=== PATIENT | female | born 1995 | race Caucasian/White ===

== ENCOUNTER 2016-08-07 14:15 | Observation (INO) | payer SELFPAY ==
[~2016-08-07] VITALS: Ht 160 cm; Wt 80.3 kg
[2016-08-07 15:13] VITALS: BP 140/110
--- NOTE | 2016-08-07 15:29 | NUR ---
OB RN NOTIFIED TO CHECK HEART TONE AT EXT [id number]
--- NOTE | 2016-08-07 15:37 | NUR ---
Patient ambulated to bed 8. CLAIM REP evaluating patient at bedside.
[2016-08-07] MEDS ORDERED: hydrALAZINE 20 MG/ML VIAL IVP ONE (15:45)
--- NOTE | 2016-08-07 15:53 | NUR ---
Dr. Hood at bedside and wants patient to go to L&D
--- NOTE | 2016-08-07 16:03 | NUR ---
Pt taken to L&D in a w/c accompanied by EMT David and ARABELLA Hedrick.
[2016-08-07] MEDS ORDERED: LABETALOL 200 MG TAB PO SCH (21:00)
[2016-08-07] MEDS ORDERED: LABETALOL 200 MG TAB ONE (22:18)
--- NOTE | 2016-08-08 06:57 | NUR ---
PATIENT HAS BEEN SCREENED AND CATEGORIZED LOW NUTRITION RISK. PATIENT WILL BE SEEN WITHIN 7 DAYS OF ADMISSION. 08/14/16 DANICA SOLIS MS, RDN
[2016-08-08 07:03] LABS: BASOPHILS # (AUTO) 0.2 K/uL (0.00-0.22); BASOPHILS % (AUTO) 1.3 % (0.0-2.0); EOSINOPHILS # (AUTO) 0.1 K/uL (0-0.4); EOSINOPHILS % (AUTO) 1.2 % (0.0-4.0); HEMATOCRIT 37.4 % (36-48); HEMOGLOBIN 12.5 g/dL (12.0-16.0); LYMPHOCYTES # (AUTO) 4.1 K/uL (2.5-16.5); LYMPHOCYTES % (AUTO) 33.9 % (20.5-51.1); MEAN CORPUSCULAR HEMOGLOBIN 30 pg (27-31); MEAN CORPUSCULAR HGB CONC 34 g/dL (33-37); MEAN CORPUSCULAR VOLUME 89 fL (80-94); MONOCYTES # (AUTO) 0.7 K/uL (0.8-1.0); NEUTROPHILS # (AUTO) 7.1 K/uL (1.8-7.7); NEUTROPHILS % (AUTO) 57.6 % (42.2-75.2); PLATELET COUNT (AUTO) 192 K/uL (140-450); RED BLOOD CELL COUNT(AUTO) 4.19 MIL/uL (4.20-5.40); RED CELL DISTRIBUTION WIDTH 13.4 % (11.6-13.7); WHITE BLOOD COUNT (AUTO) 12.2 K/uL (4.5-11.0)
[2016-08-08 07:44] LABS: ALBUMIN 2.4 g/dL (3.4-5.0); BILIRUBIN,DIRECT 0.1 mg/dL (0.0-0.3); TOTAL BILIRUBIN 0.4 mg/dL (0.0-1.0); TOTAL PROTEIN, SERUM 6.1 g/dL (6.4-8.2)
[2016-08-08 07:54] LABS: INR 0.9 (0.8-1.2); PARTIAL THROMBOPLASTIN TIME 26.4 secs (22-35.6); PROTHROMBIN TIME 9.2 secs (10.8-13.4)
[2016-08-08] MEDS ORDERED: LABETALOL 200 MG TAB ONE (09:55)
== END 2016-08-08 15:28 | disposition home or self-care (01) ==
LOC: MED 14:15 → EDSTATUS 16:00 → PREOBSVTOIN 16:10 → MFCC 17:09
PROVIDERS: ADMIT Obstetrics & Gynecology; ATTEND Obstetrics & Gynecology
DX: O14.93 Unspecified pre-eclampsia, third trimester (principal); Z3A.37 37 weeks gestation of pregnancy
CPT/HCPCS: 36415; 76805; 80076; 81000; 85025; 85379; 85384; 85610; 85730; 93005; 99283; G0378; Q0092; 99285

== ENCOUNTER 2016-08-14 14:38 | Inpatient (IN) | payer SELFPAY ==
[~2016-08-14] VITALS: Ht 160 cm; Wt 79.8 kg
[2016-08-14] MEDS ORDERED: MISOPROSTOL 25 MCG TAB ONE (21:40)
[2016-08-14] MEDS ORDERED: OXYTOCIN 20 UNITS/LR PREMIX 1,000 ML IV SCH ×2 (21:50→22:54)
[2016-08-14] MEDS ORDERED: AMPICILLIN 2,000 MG in NACL 0.9% 100 ML IV SCH (21:50)
[2016-08-14] MEDS ORDERED: METHYLERGONOVINE 0.2 MG/ML AMP IM PRN (21:50)
[2016-08-14] MEDS ORDERED: CARBOPROST 250 MCG/ML AMP IM SCH (21:50)
[2016-08-14] MEDS ORDERED: NALBUPHINE 10 MG/ML AMP IVP PRN ×2 (21:50→22:55)
[2016-08-14 22:00] VITALS: BP 132/87
[2016-08-14] MEDS ORDERED: AMPICILLIN 2,000 MG VIAL ONE (22:20)
[2016-08-14 22:36] LABS: BASOPHILS # (AUTO) 0.1 K/uL (0.00-0.22); BASOPHILS % (AUTO) 1.1 % (0.0-2.0); EOSINOPHILS # (AUTO) 0.2 K/uL (0-0.4); EOSINOPHILS % (AUTO) 1.6 % (0.0-4.0); HEMATOCRIT 40.4 % (36-48); HEMOGLOBIN 13.1 g/dL (12.0-16.0); LYMPHOCYTES % (AUTO) 33.1 % (20.5-51.1); MEAN CORPUSCULAR HEMOGLOBIN 29 pg (27-31); MEAN CORPUSCULAR HGB CONC 33 g/dL (33-37); MEAN CORPUSCULAR VOLUME 89 fL (80-94); MONOCYTES # (AUTO) 0.8 K/uL (0.8-1.0); MONOCYTES % (AUTO) 6.7 % (1.7-9.3); NEUTROPHILS # (AUTO) 6.9 K/uL (1.8-7.7); NEUTROPHILS % (AUTO) 57.5 % (42.2-75.2); PLATELET COUNT (AUTO) 203 K/uL (140-450); RED BLOOD CELL COUNT(AUTO) 4.57 MIL/uL (4.20-5.40); RED CELL DISTRIBUTION WIDTH 13.4 % (11.6-13.7)
[2016-08-14 22:43] LABS: APPEARANCE,URINE SL CLOUDY (CLEAR); BILIRUBIN,URINE NEGATIVE (NEGATIVE); BLOOD, URINE NEGATIVE (NEGATIVE); COLOR,URINE YELLOW (YELLOW); LEUKOCYTE ESTERASE ,URINE 3+ (NEGATIVE); NITRITE, URINE NEGATIVE (NEGATIVE); PROTEIN,URINE NEGATIVE (NEGATIVE); UGLUCOSE NEGATIVE (NEGATIVE); UROBILINOGEN,URINE 0.2 EU/dL (0.2 - 1)
[2016-08-14 22:49] LABS: BACTERIA,URINE 2+ /HPF (None Seen); RBC,URINE 0-5 /HPF (0-5); WBC,URINE 60-80 /HPF (0-5)
[2016-08-14] MEDS: LACTATED RINGERS 1,000 ML IV SCH (22:49)
[2016-08-14 22:54] LABS: ALBUMIN 2.6 g/dL (3.4-5.0); ANION GAP 16.2 (8-16); CALCIUM 8.9 mg/dL (8.5-10.1); CARBON DIOXIDE 21.7 mmol/L (21-32); CREATININE 0.7 mg/dL (0.6-1.3); POTASSIUM 3.9 mmol/L (3.5-5.1); TOTAL BILIRUBIN 0.2 mg/dL (0.0-1.0); TOTAL PROTEIN, SERUM 6.7 g/dL (6.4-8.2)
[2016-08-14] MEDS ORDERED: MISOPROSTOL 25 MCG TAB VG ONE (22:55)
[2016-08-15] MEDS ORDERED: LABETALOL 200 MG TAB ONE ×2 (00:02→12:17)
[2016-08-15 00:43] LABS: INR 0.9 (0.8-1.2); PROTHROMBIN TIME 9.2 secs (10.8-13.4)
[2016-08-15] MEDS ORDERED: MISOPROSTOL 25 MCG TAB VG SCH (01:00)
[2016-08-15] MEDS ORDERED: AMPICILLIN 1,000 MG VIAL ONE ×2 (03:23→08:46)
[2016-08-15] MEDS: AMPICILLIN 1,000 MG in NACL 0.9% 50 ML IV SCH ×2 (03:38→08:52)
[2016-08-15] MEDS ORDERED: OXYTOCIN 20 UNITS/LR PREMIX 1,000 ML IV ONE (04:03)
[2016-08-15] MEDS: LACTATED RINGERS 1,000 ML IV SCH ×2 (06:04→06:56)
[2016-08-15] MEDS ORDERED: BUPIVACAINE 0.125%/NS PREMIX 250 ML ONE (06:06)
--- NOTE | 2016-08-15 06:51 | NUR ---
PATIENT HAS BEEN SCREENED AND CATEGORIZED LOW NUTRITION RISK. PATIENT WILL BE SEEN WITHIN 7 DAYS OF ADMISSION. 08/22/15 DANICA SOLIS MS, RDN
[2016-08-15] MEDS: LABETALOL 200 MG TAB PO SCH ×2 (12:19)
[2016-08-15] MEDS ORDERED: MORPHINE SULFATE 10 MG/ML SYR ONE (12:52)
[2016-08-15] MEDS ORDERED: LIDOCAINE MPF 2% 100 MG/5 ML VIAL INJ ONE (13:09)
[2016-08-15] MEDS ORDERED: LABETALOL 100 MG/20 ML VIAL ONE (13:10)
[2016-08-15] MEDS ORDERED: METHYLERGONOVINE 0.2 MG/ML AMP ONE (13:11)
[2016-08-15] MEDS ORDERED: OXYTOCIN 10 UNITS/ML VIAL ONE (13:15)
[2016-08-15] MEDS ORDERED: NALOXONE 0.4 MG/ML VIAL ONE ×3 (13:17→13:34)
[2016-08-15] MEDS ORDERED: OXYTOCIN 20 UNITS/LR PREMIX 1,000 ML IV SCH (16:43)
[2016-08-15] MEDS ORDERED: WITCH HAZEL 40 PAD PACKAGE TP PRN (16:45)
[2016-08-15] MEDS ORDERED: DOCUSATE SODIUM 100 MG GELCAP PO PRN (16:45)
[2016-08-15] MEDS ORDERED: oxyCODONE/APAP 5/325 MG 1 TAB TAB PO PRN (16:45)
[2016-08-15] MEDS ORDERED: BENZOCAINE/MENTHOL 20%-0.5% 60 GM CAN TP PRN (16:45)
[2016-08-15] MEDS ORDERED: MEASLES, MUMPS, AND RUBELLA 1 VIAL SQVAC PRN (16:45)
[2016-08-15] MEDS ORDERED: ACETAMINOPHEN 325 MG TAB ONE (20:02)
[2016-08-15] MEDS: ACETAMINOPHEN 325 MG TAB PO PRN (20:36)
[2016-08-15] MEDS ORDERED: LABETALOL 200 MG TAB PO SCH (21:00)
[2016-08-16] MEDS ORDERED: NALOXONE 0.4 MG/ML VIAL IVP ONE (00:01)
[2016-08-16] MEDS ORDERED: LABETALOL 200 MG TAB ONE (00:08)
[2016-08-16 06:42] LABS: BASOPHILS # (AUTO) 0.2 K/uL (0.00-0.22); BASOPHILS % (AUTO) 1.5 % (0.0-2.0); EOSINOPHILS # (AUTO) 0.2 K/uL (0-0.4); EOSINOPHILS % (AUTO) 1.6 % (0.0-4.0); HEMATOCRIT 34.5 % (36-48); HEMOGLOBIN 11.2 g/dL (12.0-16.0); LYMPHOCYTES % (AUTO) 33.8 % (20.5-51.1); MEAN CORPUSCULAR HEMOGLOBIN 29 pg (27-31); MEAN CORPUSCULAR HGB CONC 33 g/dL (33-37); MEAN CORPUSCULAR VOLUME 89 fL (80-94); MONOCYTES # (AUTO) 0.6 K/uL (0.8-1.0); MONOCYTES % (AUTO) 5.1 % (1.7-9.3); NEUTROPHILS # (AUTO) 6.9 K/uL (1.8-7.7); PLATELET COUNT (AUTO) 156 K/uL (140-450); RED BLOOD CELL COUNT(AUTO) 3.86 MIL/uL (4.20-5.40); RED CELL DISTRIBUTION WIDTH 13.4 % (11.6-13.7); WHITE BLOOD COUNT (AUTO) 11.9 K/uL (4.5-11.0)
[2016-08-16] MEDS ORDERED: ACETAMINOPHEN 325 MG TAB ONE (08:24)
[2016-08-16] MEDS: ACETAMINOPHEN 325 MG TAB PO PRN (08:30)
[2016-08-16] MEDS ORDERED: LABETALOL 100 MG TAB PO SCH (12:00)
[2016-08-16] MEDS: LABETALOL 100 MG TAB PO SCH (15:05)
[2016-08-17] MEDS: LABETALOL 100 MG TAB PO SCH ×3 (03:06→10:56)
[2016-08-17] MEDS ORDERED: FERR325E14 PO (14:25)
[2016-08-17] MEDS ORDERED: ACET-9800 PO (14:27)
[2016-08-17] MEDS ORDERED: TRA200 PO (14:29)
== END 2016-08-17 15:25 | disposition home or self-care (01) | DRG 774 ==
LOC: OBSVTOIN 14:38 → MLD 14:38 → MFCC 08-16 10:35
PROVIDERS: ADMIT Obstetrics & Gynecology; ATTEND Obstetrics & Gynecology
PROC: 10D07Z6 Extraction of Products of Conception, Vacuum, Via Natural or Artificial Opening (ICD-10-PCS; principal; 2016-08-15)
PROC: 10907ZC Drainage of Amniotic Fluid, Therapeutic from Products of Conception, Via Natural or Artificial Opening (ICD-10-PCS; 2016-08-15)
PROC: 0W8NXZZ Division of Female Perineum, External Approach (ICD-10-PCS; 2016-08-15)
PROC: 00HU33Z Insertion of Infusion Device into Spinal Canal, Percutaneous Approach (ICD-10-PCS; 2016-08-15)
PROC: 3E0R3CZ (ICD-10-PCS; 2016-08-15)
DX: O13.4 Gestational [pregnancy-induced] hypertension without significant proteinuria, complicating childbirth (principal); O15.1 Eclampsia complicating labor; O41.03X0 Oligohydramnios, third trimester, not applicable or unspecified; O14.94 Unspecified pre-eclampsia, complicating childbirth; O99.824 Streptococcus B carrier state complicating childbirth; Z3A.38 38 weeks gestation of pregnancy; Z37.0 Single live birth; Z83.3 Family history of diabetes mellitus; Z82.49 Family history of ischemic heart disease and other diseases of the circulatory system; Z28.21 Immunization not carried out because of patient refusal
CPT/HCPCS: 36415; 51702; 59025; 59200; 59409; 76815; 80053; 81001; 83735; 85025; 85379; 85384; 85610; 85730; 86592; 86886; 86900; 86901; 87086; J0290; J2001; J2210; J2270; J2310; J2590; J3490; J7120; Q0092

== ENCOUNTER 2018-05-20 16:26 | Inpatient (IN) | payer OTHER ==
[~2018-05-20] VITALS: Ht 160 cm; Wt 79.8 kg
[~2018-05-20 16:26] MED LIST: ACET-9800 PO; FERR325E14 PO; TRA200 PO
[2018-05-20] MEDS ORDERED: PREN-380 PO (17:39)
[2018-05-20] MEDS ORDERED: PROMETHAZINE 25 MG/ML VIAL IVP PRN (17:40)
[2018-05-20] MEDS ORDERED: CARBOPROST 250 MCG/ML AMP IM PRN (17:40)
[2018-05-20] MEDS ORDERED: NALBUPHINE 10 MG/ML AMP IVP PRN ×2 (17:40→20:50)
[2018-05-20] MEDS ORDERED: MISOPROSTOL 25 MCG TAB VG PRN (17:40)
[2018-05-20] MEDS ORDERED: METHYLERGONOVINE 0.2 MG/ML AMP IM PRN (17:40)
[2018-05-20] MEDS ORDERED: OXYTOCIN 10 UNITS/ML VIAL IM SCH (17:40)
[2018-05-20] MEDS ORDERED: AMPICILLIN 2,000 MG VIAL ONE (18:03)
[2018-05-20 18:15] LABS: BASOPHILS % (AUTO) 0.4 % (0.0-2.0); EOSINOPHILS % (AUTO) 0.2 % (0.0-4.0); HEMATOCRIT 38.3 % (36-48); HEMOGLOBIN 12.8 g/dL (12.0-16.0); LYMPHOCYTES # (AUTO) 2.8 K/uL (2.5-16.5); LYMPHOCYTES % (AUTO) 29.1 % (20.5-51.1); MEAN CORPUSCULAR HEMOGLOBIN 29 pg (27-31); MEAN CORPUSCULAR HGB CONC 33 g/dL (33-37); MEAN CORPUSCULAR VOLUME 87.3 fL (80-94); MONOCYTES # (AUTO) 0.4 K/uL (0.8-1.0); MONOCYTES % (AUTO) 4.6 % (1.7-9.3); NEUTROPHILS # (AUTO) 6.3 K/uL (1.8-7.7); NEUTROPHILS % (AUTO) 65.7 % (42.2-75.2); PLATELET COUNT (AUTO) 243 K/uL (140-450); RED BLOOD CELL COUNT(AUTO) 4.39 MIL/uL (4.20-5.40); RED CELL DISTRIBUTION WIDTH 14.1 % (11.6-13.7); WHITE BLOOD COUNT (AUTO) 9.7 K/uL (4.8-10.8)
[2018-05-20 18:15] LABS: APPEARANCE,URINE CLEAR (CLEAR); BILIRUBIN,URINE NEGATIVE (NEGATIVE); BLOOD, URINE NEGATIVE (NEGATIVE); COLOR,URINE YELLOW (YELLOW); LEUKOCYTE ESTERASE ,URINE 2+ (NEGATIVE); NITRITE, URINE NEGATIVE (NEGATIVE); UGLUCOSE NEGATIVE (NEGATIVE)
[2018-05-20] MEDS: LACTATED RINGERS 1,000 ML IV SCH (18:31)
[2018-05-20 18:33] LABS: ALBUMIN 2.5 g/dL (3.4-5.0); CARBON DIOXIDE 21.7 mmol/L (21-32); CREATININE 0.6 mg/dL (0.6-1.3); POTASSIUM 3.7 mmol/L (3.5-5.1); TOTAL BILIRUBIN 0.2 mg/dL (0.0-1.0)
[2018-05-20 18:34] LABS: RBC,URINE 0-5 /HPF (0-5)
[2018-05-20] MEDS ORDERED: AMPICILLIN 2,000 MG in NACL 0.9% MINI-BAG PLUS 100 ML IV SCH (19:00)
[2018-05-20] MEDS: AMPICILLIN 1,000 MG in NACL 0.9% MINI-BAG PLUS 50 ML IV SCH (20:44)
[2018-05-20] MEDS ORDERED: OXYTOCIN 20 UNITS in LACTATED RINGERS 1,000 ML IV SCH (20:49)
[2018-05-20] MEDS ORDERED: MISOPROSTOL 25 MCG TAB VG ONE (20:50)
[2018-05-20] MEDS ORDERED: MISOPROSTOL 25 MCG TAB ONE (21:29)
[2018-05-20] MEDS: AMPICILLIN 1,000 MG VIAL ONE (22:42)
[2018-05-21] MEDS ORDERED: AMPICILLIN 1,000 MG VIAL ONE ×2 (00:30→05:46)
[2018-05-21] MEDS ORDERED: BUPIVACAINE 0.125%/NS PREMIX 250 ML ONE (01:03)
[2018-05-21] MEDS: AMPICILLIN 1,000 MG VIAL ONE (03:01)
[2018-05-21] MEDS: LACTATED RINGERS 1,000 ML IV SCH (03:06)
[2018-05-21] MEDS: AMPICILLIN 1,000 MG in NACL 0.9% MINI-BAG PLUS 50 ML IV SCH (07:01)
[2018-05-21] MEDS ORDERED: OXYTOCIN 10 UNITS/ML VIAL ONE (10:26)
[2018-05-21] MEDS ORDERED: LIDOCAINE 1% 500 MG/50 ML VIAL ONE (10:26)
[2018-05-21] MEDS ORDERED: OXYTOCIN 20 UNITS in LACTATED RINGERS 1,000 ML IV SCH (15:20)
[2018-05-21] MEDS ORDERED: MEASLES, MUMPS, AND RUBELLA 1 VIAL SQVAC PRN (15:20)
[2018-05-21] MEDS ORDERED: DOCUSATE SODIUM 100 MG GELCAP PO PRN (15:20)
[2018-05-21] MEDS ORDERED: BENZOCAINE/MENTHOL 20%-0.5% 60 GM CAN TP PRN (15:20)
[2018-05-21] MEDS ORDERED: BISACODYL 5 MG TABEC PO PRN (15:20)
[2018-05-21] MEDS: ACETAMINOPHEN 325 MG TAB PO PRN (20:16)
[2018-05-22] MEDS: IBUPROFEN 600 MG TAB PO PRN ×2 (02:14→13:03)
--- NOTE | 2018-05-22 06:26 | NUR ---
PATIENT HAS BEEN SCREENED AND CATEGORIZED LOW NUTRITION RISK. PATIENT WILL BE SEEN WITHIN 7 DAYS OF ADMISSION. 05/27/18 DANICA SOLIS MS, RDN
[2018-05-22 08:30] LABS: BASOPHILS # (AUTO) 0.1 K/uL (0.00-0.22); BASOPHILS % (AUTO) 1.2 % (0.0-2.0); EOSINOPHILS # (AUTO) 0.1 K/uL (0-0.4); EOSINOPHILS % (AUTO) 0.7 % (0.0-4.0); HEMATOCRIT 33.8 % (36-48); HEMOGLOBIN 11.1 g/dL (12.0-16.0); LYMPHOCYTES # (AUTO) 3.8 K/uL (2.5-16.5); LYMPHOCYTES % (AUTO) 34.5 % (20.5-51.1); MEAN CORPUSCULAR HEMOGLOBIN 29 pg (27-31); MEAN CORPUSCULAR HGB CONC 33 g/dL (33-37); MONOCYTES # (AUTO) 0.6 K/uL (0.8-1.0); MONOCYTES % (AUTO) 5.3 % (1.7-9.3); NEUTROPHILS # (AUTO) 6.4 K/uL (1.8-7.7); NEUTROPHILS % (AUTO) 58.3 % (42.2-75.2); PLATELET COUNT (AUTO) 182 K/uL (140-450); RED BLOOD CELL COUNT(AUTO) 3.84 MIL/uL (4.20-5.40); RED CELL DISTRIBUTION WIDTH 14.6 % (11.6-13.7)
[2018-05-22] MEDS: ACETAMINOPHEN 325 MG TAB PO PRN (23:00)
[2018-05-23] MEDS: ACETAMINOPHEN 325 MG TAB PO PRN (06:59)
[2018-05-23] MEDS: IBUPROFEN 600 MG TAB PO PRN (13:41)
== END 2018-05-23 16:00 | disposition home or self-care (01) | DRG 560 ==
LOC: MFCC 16:26
PROVIDERS: ADMIT Obstetrics & Gynecology; ATTEND Obstetrics & Gynecology
PROC: 10D07Z6 Extraction of Products of Conception, Vacuum, Via Natural or Artificial Opening (ICD-10-PCS; principal; 2018-05-21)
PROC: 10907ZC Drainage of Amniotic Fluid, Therapeutic from Products of Conception, Via Natural or Artificial Opening (ICD-10-PCS; 2018-05-21)
PROC: 3E0R3BZ Introduction of Anesthetic Agent into Spinal Canal, Percutaneous Approach (ICD-10-PCS; 2018-05-21)
PROC: 00HU33Z Insertion of Infusion Device into Spinal Canal, Percutaneous Approach (ICD-10-PCS; 2018-05-21)
DX: O99.824 Streptococcus B carrier state complicating childbirth (principal); Z37.0 Single live birth; Z3A.39 39 weeks gestation of pregnancy
CPT/HCPCS: 36415; 59409; 76815; 80053; 81001; 85025; 86592; 86886; 86900; 86901; 87086; J0290; J2001; J2590; J3490; J7120